=== PATIENT | male | born 1970 | race Asian ===

== ENCOUNTER 2024-07-31 14:40 | Inpatient (IN) | payer SELFPAY ==
[~2024-07-31] VITALS: Ht 167.6 cm; Wt 73.4 kg
[~2024-07-31 14:40] MED LIST: CITA-144 PO; LEVO50 PO
[2024-07-31 15:35] LABS: BASOPHILS % (AUTO) 0.6 % (0.0-2.0); EOSINOPHILS % (AUTO) 0.8 % (1.0-6.0); HEMATOCRIT 43.5 % (41-53); HEMOGLOBIN 14.1 g/dL (13.5-17.5); LYMPHOCYTES # (AUTO) 1.1 K/uL (1.0-4.8); LYMPHOCYTES % (AUTO) 11.6 % (22.0-44.0); MEAN CORPUSCULAR HEMOGLOBIN 30.5 pg (26.0-34.0); MEAN CORPUSCULAR HGB CONC 32.5 G/dL (31.0-37.0); MEAN CORPUSCULAR VOLUME 94 fL (80-100); MONOCYTES # (AUTO) 0.7 K/uL (0.1-1.0); MONOCYTES % (AUTO) 7.4 % (2.0-9.0); NEUTROPHILS # (AUTO) 7.7 K/uL (1.8-7.7); NEUTROPHILS % (AUTO) 79.6 % (40.0-70.0); PLATELET COUNT (AUTO) 290 K/uL (150-450); RED BLOOD CELL COUNT(AUTO) 4.63 MIL/uL (4.50-5.90); RED CELL DISTRIBUTION WIDTH 14.3 % (11.5-14.5); WHITE BLOOD COUNT (AUTO) 9.7 K/uL (4.5-11.0)
[2024-07-31 15:48] LABS: B-TYPE NATRIURETIC PEPTIDE 107 pg/mL (0-100)
[2024-07-31 15:50] LABS: PROTHROMBIN TIME 10.9 SEC (9.4-11.6)
[2024-07-31 15:55] LABS: TROPONIN I-HIGH SENSITIVITY 99 ng/L (<76)
[2024-07-31 15:57] LABS: ANION GAP 10 mmol/L (8-16); CALCIUM, TOTAL 8.9 mg/dL (8.8-10.5); CARBON DIOXIDE 25 mmol/L (22-29); CHLORIDE 105 mmol/L (98-107); CREATININE 0.96 mg/dL (0.60-1.30); GLOMERULAR FILTR. RATE CALC > 60 mL/min (>60); GLUCOSE,RANDOM 122 mg/dL (70-110); SODIUM SERUM 140 mmol/L (136-145); UREA NITROGEN, BLOOD 18 mg/dL (7-18)
[2024-07-31 16:19] LABS: ALANINE AMINOTRANSFERASE 33 U/L (12-78); ALBUMIN 3.5 g/dL (3.4-5.0); ALKALINE PHOSPHATASE 91 U/L (46-116); ASPARTATE AMINOTRANSFERASE 36 U/L (15-37); BILIRUBIN,TOTAL 0.7 mg/dL (0.1-1.0); CREATINE KINASE, TOTAL ONLY 918 U/L (39-308); TOTAL PROTEIN, SERUM 6.8 g/dL (6.4-8.2)
[2024-07-31] MEDS: POTASSIUM CHLORIDE 20 MEQ ER TABLET PO ONE (17:16)
[2024-07-31 17:42] LABS: TROPONIN I-HIGH SENSITIVITY 111 ng/L (<76)
[2024-07-31] MEDS: ASPIRIN 81 MG CHEWABLE TABLET PO ONE (19:46)
[2024-07-31] MEDS: METOPROLOL TARTRATE 25 MG TABLET PO ONE (19:46)
[2024-07-31] MEDS ORDERED: MAGNESIUM HYDROXIDE SUSPENSION 30 ML UDCUP PO PRN (20:30)
[2024-07-31] MEDS ORDERED: POTASSIUM CHL 10 MEQ/WATER 50 ML IV PRN (20:30)
[2024-07-31] MEDS ORDERED: ZOLPIDEM TARTRATE 5 MG TABLET PO PRN (20:30)
[2024-07-31 21:20] LABS: APPEARANCE,URINE CLEAR (CLEAR); BILIRUBIN,URINE NEGATIVE (NEGATIVE); COLOR,URINE YELLOW (YELLOW); GLUCOSE, URINE (UA) NEGATIVE (NEGATIVE); KETONES,URINE 40-60 mg/dL (NEGATIVE); LEUKOCYTE ESTERASE ,URINE NEGATIVE (NEGATIVE); NITRATE,URINE NEGATIVE (NEGATIVE); OCCULT BLOOD,URINE NEGATIVE (NEGATIVE); PROTEIN,URINE 30-70 mg/dL (NEGATIVE); SPECIFIC GRAVITIY, URINE 1.026 (1.003-1.030); UROBILINOGEN,URINE <=1.0 mg/dL (<=1.0)
[2024-07-31 21:32] LABS: TROPONIN I-HIGH SENSITIVITY 117 ng/L (<76)
[2024-07-31 22:13] VITALS: BP 109/71; PULSE 78; RESP 19; TEMP 98.2; O2SAT 97
[2024-07-31] MEDS: ACETAMINOPHEN 325 MG TABLET PO PRN (22:16)
[2024-08-01] VITALS (8 sets, daily range): BP systolic 122–150; BP diastolic 70–97; PULSE 61–79; RESP 18; TEMP 97.4–98.5; O2SAT 96–100
[2024-08-01] MEDS: FAMOTIDINE 20 MG TABLET PO SCH (08:51)
[2024-08-01 09:05] LABS: BASOPHILS % (AUTO) 0.6 % (0.0-2.0); EOSINOPHILS % (AUTO) 3.3 % (1.0-6.0); HEMATOCRIT 40.7 % (41-53); HEMOGLOBIN 13.5 g/dL (13.5-17.5); LYMPHOCYTES % (AUTO) 27.6 % (22.0-44.0); MEAN CORPUSCULAR HGB CONC 33.1 G/dL (31.0-37.0); MEAN CORPUSCULAR VOLUME 94 fL (80-100); MONOCYTES # (AUTO) 0.6 K/uL (0.1-1.0); MONOCYTES % (AUTO) 8.3 % (2.0-9.0); NEUTROPHILS # (AUTO) 4.3 K/uL (1.8-7.7); NEUTROPHILS % (AUTO) 60.2 % (40.0-70.0); PLATELET COUNT (AUTO) 250 K/uL (150-450); RED BLOOD CELL COUNT(AUTO) 4.35 MIL/uL (4.50-5.90); RED CELL DISTRIBUTION WIDTH 14.2 % (11.5-14.5); WHITE BLOOD COUNT (AUTO) 7.1 K/uL (4.5-11.0)
[2024-08-01 09:17] LABS: CARBON DIOXIDE 29 mmol/L (22-29); CHLORIDE 103 mmol/L (98-107); POTASSIUM 3.2 mmol/L (3.5-5.1); SODIUM SERUM 140 mmol/L (136-145)
[2024-08-01 09:18] LABS: ANION GAP 8 mmol/L (8-16); CALCIUM, TOTAL 8.7 mg/dL (8.8-10.5); CREATININE 0.81 mg/dL (0.60-1.30); GLOMERULAR FILTR. RATE CALC > 60 mL/min (>60); GLUCOSE,RANDOM 149 mg/dL (70-110); UREA NITROGEN, BLOOD 21 mg/dL (7-18)
[2024-08-01] MEDS: POTASSIUM CHLORIDE 20 MEQ ER TABLET PO PRN (11:58)
[2024-08-01 16:18] LABS: MAGNESIUM 2.2 mg/dL (1.80-2.40); POTASSIUM 3.9 mmol/L (3.5-5.1)
[2024-08-01 16:33] LABS: TROPONIN I-HIGH SENSITIVITY 78 ng/L (<76)
[2024-08-01 22:33] LABS: ALCOHOL, URINE DRUG SCREEN NEGATIVE (NEGATIVE); AMPHET/METH SCREEN,URINE POSITIVE (NEGATIVE); BARBITURATE SCREEN, URINE NEGATIVE (NEGATIVE); BENZODIAZEPINES SCREEN,URINE NEGATIVE (NEGATIVE); CANNABINOID SCREEN,URINE NEGATIVE (NEGATIVE); COCAINE SCREEN,URINE NEGATIVE (NEGATIVE); METHADONE SCREEN, URINE NEGATIVE (NEGATIVE); OPIATE SCREEN,URINE NEGATIVE (NEGATIVE); PHENCYCLIDINE SCREEN,URINE NEGATIVE (NEGATIVE)
[2024-08-02] VITALS (20 sets, daily range): BP systolic 118–155; BP diastolic 80–108; PULSE 65–86; RESP 18–20; TEMP 97.6–97.8; O2SAT 94–100
[2024-08-02] MEDS ORDERED: HEPARIN SODIUM 1000 UNITS/NS 1,000 ML ONE (06:52)
[2024-08-02] MEDS ORDERED: NITROGLYCERIN 50 MG/D5% WATER 250 ML ONE (06:52)
[2024-08-02] MEDS ORDERED: SODIUM BICARBONATE 50 MEQ/50 ML VIAL ONE (06:52)
[2024-08-02] MEDS ORDERED: VERAPAMIL HCL 2.5 MG/ML 2 ML VIAL ONE (06:52)
[2024-08-02] MEDS ORDERED: LIDOCAINE/PF 1% 30 ML VIAL ONE (06:52)
[2024-08-02] MEDS ORDERED: IOHEXOL 300 MG/ML 100 ML VIAL ONE (06:52)
[2024-08-02] MEDS ORDERED: FentaNYL CITRATE PF 100 MCG/2 ML VIAL ONE (07:35)
[2024-08-02] MEDS ORDERED: MIDAZOLAM HCL 2 MG/2 ML VIAL ONE (07:35)
[2024-08-02] MEDS: HEPARIN SODIUM,PORCINE 1,000 UNITS/ML 10 ML VIAL IARTER ONE (07:56)
[2024-08-02] MEDS: LIDOCAINE 1% 30 ML/SOD BICARB 8.4% 4 ML SQ ONE (07:56)
[2024-08-02] MEDS: VERAPAMIL HCL 2.5 MG/ML 2 ML VIAL IARTER ONE (07:56)
[2024-08-02] MEDS: NITROGLYCERIN/D5W 50 MG/250 ML IV BOTTLE IARTER ONE (07:57)
[2024-08-02] MEDS: FentaNYL CITRATE PF 100 MCG/2 ML VIAL IVP ONE (07:58)
[2024-08-02] MEDS: HEPARIN SODIUM 2,000 UNITS in HEPARIN SODIUM 1000 UNITS/NS 1,000 ML IARTER ONE (07:58)
[2024-08-02] MEDS: MIDAZOLAM HCL 2 MG/2 ML VIAL IVP ONE (07:58)
[2024-08-02] MEDS: IOHEXOL 300 MG/ML 100 ML VIAL IARTER ONE (08:00)
[2024-08-02] MEDS ORDERED: HydrALAZINE HCL 20 MG/ML VIAL ONE (08:04)
[2024-08-02] MEDS ORDERED: NITROGLYCERIN 400 MCG/SUBLINGUAL SPRAY 4.9 GM BOTTLE SL ONE ×2 (08:05→08:20)
[2024-08-02] MEDS: SODIUM CHLORIDE 0.9% 500 ML IV ONE (08:14)
[2024-08-02] MEDS: HydrALAZINE HCL 20 MG/ML VIAL IVP ONE (08:15)
[2024-08-02] MEDS ORDERED: ASPIRIN 325 MG TABLET ONE (08:17)
[2024-08-02] MEDS: CLOPIDOGREL BISULFATE 300 MG TABLET PO ONE (08:18)
[2024-08-02] MEDS: ASPIRIN 325 MG TABLET PO ONE (08:18)
[2024-08-02] MEDS ORDERED: CLOPIDOGREL BISULFATE 300 MG TABLET ONE (08:18)
[2024-08-02] MEDS: HEPARIN SODIUM,PORCINE 1,000 UNITS/ML 10 ML VIAL IVP ONE (08:19)
[2024-08-02] MEDS: NITROGLYCERIN 400 MCG/SUBLINGUAL SPRAY 4.9 GM BOTTLE SL ONE (08:20)
[2024-08-02 09:19] LABS: BASOPHILS % (AUTO) 1.3 % (0.0-2.0); HEMATOCRIT 42.3 % (41-53); HEMOGLOBIN 13.8 g/dL (13.5-17.5); LYMPHOCYTES # (AUTO) 3.2 K/uL (1.0-4.8); LYMPHOCYTES % (AUTO) 30.8 % (22.0-44.0); MEAN CORPUSCULAR HEMOGLOBIN 30.5 pg (26.0-34.0); MEAN CORPUSCULAR HGB CONC 32.6 G/dL (31.0-37.0); MEAN CORPUSCULAR VOLUME 94 fL (80-100); MONOCYTES # (AUTO) 0.9 K/uL (0.1-1.0); MONOCYTES % (AUTO) 8.3 % (2.0-9.0); NEUTROPHILS # (AUTO) 5.9 K/uL (1.8-7.7); NEUTROPHILS % (AUTO) 56.6 % (40.0-70.0); PLATELET COUNT (AUTO) 276 K/uL (150-450); RED BLOOD CELL COUNT(AUTO) 4.52 MIL/uL (4.50-5.90); RED CELL DISTRIBUTION WIDTH 14.4 % (11.5-14.5); WHITE BLOOD COUNT (AUTO) 10.4 K/uL (4.5-11.0)
[2024-08-02] MEDS: ATORVASTATIN CALCIUM 40 MG TABLET PO SCH (09:32)
[2024-08-02 09:33] LABS: ANION GAP 10 mmol/L (8-16); CALCIUM, TOTAL 8.4 mg/dL (8.8-10.5); CARBON DIOXIDE 23 mmol/L (22-29); CHLORIDE 102 mmol/L (98-107); CHOL/HDL RATIO 5.5 (4.2-7.3); CHOLESTEROL 198 mg/dL (131-200); CREATININE 0.83 mg/dL (0.60-1.30); GLOMERULAR FILTR. RATE CALC > 60 mL/min (>60); GLUCOSE,RANDOM 132 mg/dL (70-110); HDL CHOLESTEROL 36 mg/dL (40-60); LDL CHOL (CALC.) 142 mg/dL (0-130); POTASSIUM 3.3 mmol/L (3.5-5.1); SODIUM SERUM 135 mmol/L (136-145); TRIGLYCERIDES 98 mg/dL (15-150); UREA NITROGEN, BLOOD 15 mg/dL (7-18)
[2024-08-03 00:17] VITALS: BP 164/108; PULSE 73; RESP 18; TEMP 98.5; O2SAT 97
[2024-08-03] MEDS: HydrALAZINE HCL 20 MG/ML VIAL IVP PRN (00:25)
[2024-08-03 00:55] VITALS: BP 158/96; RESP 18; O2SAT 96
[2024-08-03 04:00] VITALS: BP 144/95; PULSE 79
[2024-08-03 04:58] VITALS: BP 144/95; PULSE 79; RESP 18; TEMP 98.3; O2SAT 99
[2024-08-03 07:00] VITALS: BP 145/96; PULSE 82
[2024-08-03 08:00] VITALS: BP 145/96; PULSE 82; RESP 18; TEMP 98.9; O2SAT 100
[2024-08-03] MEDS: ASPIRIN 81 MG DR TABLET PO SCH (08:31)
[2024-08-03] MEDS: AmLODIPine BESYLATE 5 MG TABLET PO SCH (08:31)
[2024-08-03] MEDS: METOPROLOL TARTRATE 25 MG TABLET PO SCH (08:31)
[2024-08-03] MEDS: CLOPIDOGREL BISULFATE 75 MG TABLET PO SCH (08:31)
[2024-08-03] MEDS ORDERED: AmLODIPine BESYLATE 10 MG TABLET PO SCH (09:00)
[2024-08-03] MEDS ORDERED: AMLO-257 PO (10:55)
[2024-08-03] MEDS ORDERED: CLOP75TA60 PO (10:55)
[2024-08-03] MEDS ORDERED: METO25XL PO (10:55)
[2024-08-03] MEDS ORDERED: ASPI-1444 PO (10:55)
[2024-08-03] MEDS ORDERED: ATOR40TA71 PO (10:55)
[2024-08-03] MEDS: FUROSEMIDE 20 MG/2 ML VIAL IVP ONE (11:50)
== END 2024-08-03 14:05 | disposition home or self-care (01) | DRG 321 ==
LOC: EMS 14:44 → EDH 20:20 → 5S 21:37
PROVIDERS: ADMIT Internal Medicine; ATTEND Internal Medicine
PROC: 4A023N7 Measurement of Cardiac Sampling and Pressure, Left Heart, Percutaneous Approach (ICD-10-PCS; principal; 2024-08-02)
PROC: 027034Z Dilation of Coronary Artery, One Artery with Drug-eluting Intraluminal Device, Percutaneous Approach (ICD-10-PCS; 2024-08-02)
PROC: B211YZZ Fluoroscopy of Multiple Coronary Arteries using Other Contrast (ICD-10-PCS; 2024-08-02)
DX: I21.4 Non-ST elevation (NSTEMI) myocardial infarction (principal); I50.33 Acute on chronic diastolic (congestive) heart failure; G90.89 Other disorders of autonomic nervous system; E87.6 Hypokalemia; R79.89 Other specified abnormal findings of blood chemistry; F15.10 Other stimulant abuse, uncomplicated; I10 Essential (primary) hypertension; F19.10 Other psychoactive substance abuse, uncomplicated; F17.210 Nicotine dependence, cigarettes, uncomplicated; I11.0 Hypertensive heart disease with heart failure; I25.10 Atherosclerotic heart disease of native coronary artery without angina pectoris; Z98.61 Coronary angioplasty status
CPT/HCPCS: 71045; 80048; 80053; 80061; 80307; 81003; 82550; 83735; 83880; 84132; 84484; 85025; 85610; 85730; 92920; 92928; 93005; 93306; 99285; J0360; J1644; J1940; J2250; J3010; J3480; J3490; J7040; Q9967; 36415-L1; 36415-TC; Z7610